=== PATIENT | female | born 1995 | race Caucasian/White ===

== ENCOUNTER 2020-10-01 20:56 | Emergency (ER) | payer MEDICAID ==
[~2020-10-01] VITALS: Ht 160 cm; Wt 80.3 kg
[2020-10-01 21:21] VITALS: BP_SYST 119
[2020-10-01 22:31] VITALS: BP_SYST 122
== END 2020-10-01 22:31 | disposition home or self-care (01) ==
LOC: SED 20:56
DX: S93.691A Other sprain of right foot, initial encounter (principal); W10.8XXA Fall (on) (from) other stairs and steps, initial encounter; Y93.89 Activity, other specified; Y92.89 Other specified places as the place of occurrence of the external cause; Y99.8 Other external cause status
CPT/HCPCS: 99283